=== PATIENT | male | born 1935 | race Caucasian/White ===

== ENCOUNTER 2018-12-07 20:41 | Emergency (ER) | payer OTHER ==
[~2018-12-07] VITALS: Ht 185.4 cm; Wt 81.6 kg
--- NOTE | 2018-12-07 21:52 | NUR ---
Phleb. tech. at bedside,
[2018-12-07] MEDS ORDERED: PSYL660P17 PO (22:03)
[2018-12-07] MEDS ORDERED: OXYC10TA49 PO (22:03)
[2018-12-07] MEDS ORDERED: DOCU-141 PO (22:03)
[2018-12-07] MEDS ORDERED: TEMA30CA PO (22:03)
[2018-12-07] MEDS ORDERED: SENN-168 PO (22:03)
[2018-12-07] MEDS ORDERED: ERGO500040 PO (22:03)
[2018-12-07] MEDS ORDERED: METOPROLOL PO (22:03)
[2018-12-07] MEDS ORDERED: FAMO-132 PO (22:03)
[2018-12-07] MEDS ORDERED: ESCI10TA55 PO (22:03)
[2018-12-07] MEDS ORDERED: LOVA40TA2 PO (22:03)
[2018-12-07] MEDS ORDERED: IV NORMAL SALINE 1000 ML BAG IV ONE ×2 (22:15→23:15)
[2018-12-07 22:28] LABS: BASOPHILS % (AUTO) 0.3 % (0.0-2.0); EOSINOPHILS # (AUTO) 0.5 K/uL (0.0-0.7); HEMATOCRIT 37.9 % (36.7-47.1); HEMOGLOBIN 12.2 g/dL (12.5-16.3); LYMPHOCYTES % (AUTO) 30.4 % (20.5-51.5); MEAN CORPUSCULAR HEMOGLOBIN 25.1 uug (23.8-33.4); MEAN CORPUSCULAR HGB CONC 32 g/dL (32.5-36.3); MEAN CORPUSCULAR VOLUME 77.9 fL (73.0-96.2); MONOCYTES # (AUTO) 0.8 K/uL (2.0-10.0); MONOCYTES % (AUTO) 12.2 % (0.0-11.0); NEUTROPHILS # (AUTO) 3.2 K/uL (1.8-8.9); NEUTROPHILS % (AUTO) 50.1 % (38.5-71.5); PLATELET COUNT (AUTO) 224 K/uL (152-348); RED BLOOD CELL COUNT(AUTO) 4.86 MIL/uL (4.06-5.63); WHITE BLOOD COUNT (AUTO) 6.5 K/uL (3.6-10.2)
[2018-12-07 22:44] LABS: CARBON DIOXIDE 27 mmol/L (21-32); CHLORIDE 104 mmol/L (98-107); CREATININE 0.9 mg/dL (0.6-1.3); GLUCOSE 105 mg/dL (74-106); POTASSIUM 4.6 mmol/L (3.5-5.1); UREA NITROGEN, BLOOD 15 mg/dL (7-18)
[2018-12-07 22:50] LABS: ALANINE AMINOTRANSFERASE 13 U/L (16-63); ALKALINE PHOSPHATASE 86 U/L (50-136); ASPARTATE AMINOTRANSFERASE 14 U/L (15-37); BILIRUBIN,DIRECT 0.1 mg/dL (0.0-0.2); BILIRUBIN,TOTAL 0.4 mg/dL (0.2-1.0); TOTAL PROTEIN, SERUM 5.7 g/dL (6.4-8.2)
--- NOTE | 2018-12-08 | NUR ---
Urine specimen collected and sent to lab, dark yellow/brown small amount,
[2018-12-08 00:04] LABS: *BILIRUBIN,URIN NEGATIVE (NEGATIVE); *BLOOD, URINE 3+ (NEGATIVE); *CLARITY,URINE SLIGHTLY CLOUDY (CLEAR); *COLOR,URINE PINK (YELLOW); *KETONES,URINE NEGATIVE (NEGATIVE); *UROBILINOGEN,URINE 0.2 E.U./dl (NORMAL); LEUKOCYTE ESTERASE ,URINE NEGATIVE (NEGATIVE); NITRITE, URINE NEGATIVE (NEGATIVE); UGLUCOSE NEGATIVE (NEGATIVE)
[2018-12-08 00:12] LABS: BACTERIA,URINE NONE SEEN /HPF (NONE SEEN); RBC,URINE 80-100 /HPF (0-3); SQUAMOUS EPITHELIAL CELL,UR FEW /HPF (NONE SEEN)
[2018-12-08] MEDS ORDERED: CEphaleXIN 500 MG CAPSULE PO ONE (00:30)
[2018-12-08] MEDS ORDERED: AMOXICILLIN-CLAVUL 875-125MG TABLET ONE (00:37)
--- NOTE | 2018-12-08 00:44 | NUR ---
Patient discharged to home in stable conditon. Written and verbal after care instructions given. Patient verbalizes understanding of instructions. Pt. d/c w/ prescription per MD order, d/c papers signed, all belongings w/ pt., ID band/IV/condom catheter removed, taken off unit in private wheelchair by dairy cattle farmer of [facility], left in private vehicle, NAD
[2018-12-08] MEDS ORDERED: AMOXICILLIN-CLAVUL 875-125MG TABLET PO ONE (00:45)
== END 2018-12-08 00:47 | disposition home or self-care (01) ==
LOC: ER 20:43
DX: R30.0 Dysuria (principal); R91.8 Other nonspecific abnormal finding of lung field; E78.5 Hyperlipidemia, unspecified; K21.9 Gastro-esophageal reflux disease without esophagitis; Z79.899 Other long term (current) drug therapy
CPT/HCPCS: 36415; 70030-TC; 71045; 83605; 85025; 85730; 87040; 87086; 93005; A4663; C1758; J7030